=== PATIENT | female | born 1985 | race Caucasian/White ===

== ENCOUNTER 2016-10-04 14:22 | Emergency (ER) | payer MEDICAID ==
[2016-10-04 14:29] VITALS: BP 145/101
== END 2016-10-04 15:43 | disposition left against medical advice (07) ==
LOC: ER 14:22 → EEVIPCON 14:22 → ER 15:43
DX: Z53.21 Procedure and treatment not carried out due to patient leaving prior to being seen by health care provider (principal)

== ENCOUNTER 2018-02-13 14:42 | Emergency (ER) | payer OTHER, MEDICAID ==
[2018-02-13] MEDS ORDERED: OXYCODONE-ACETAMINOPHEN 5-325 MG TABLET PO ONE (15:27)
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
[2018-02-13] MEDS ORDERED: LIDOCAINE 5% (700 MG) TRANSDERMAL ADH..PATCH TP ONE (17:19)
[2018-02-13 17:47] VITALS: BP 111/70
== END 2018-02-13 17:40 | disposition home or self-care (01) ==
LOC: ER 14:42
DX: S16.1XXA Strain of muscle, fascia and tendon at neck level, initial encounter (principal); S29.012A Strain of muscle and tendon of back wall of thorax, initial encounter; M54.2 Cervicalgia; M54.89 Other dorsalgia; V49.40XA Driver injured in collision with unspecified motor vehicles in traffic accident, initial encounter; F17.200 Nicotine dependence, unspecified, uncomplicated
CPT/HCPCS: 72070; 72125; 99284

== ENCOUNTER 2019-03-06 13:25 | Emergency (ER) | payer SELFPAY ==
[2019-03-06 13:42] VITALS: BP 117/78
--- NOTE | 2019-03-06 14:08 | ER Document Report ---
ED Medical Screen (RME) - General Chief Complaint: Vaginal Bleeding Stated Complaint: VAGINAL BLEEDING Time Seen by Provider: 03/06/19 14:04 Mode of Arrival: Ambulatory Information source: Patient Notes: 34-year-old female presents to ED for complaint of vaginal bleeding bright red started about 5 days ago. She states she was going to the methadone clinic and due to life stresses decided to stop going to the methadone clinic and took some Xanax and Percocet to make her feel better. Now she states she still feels bad even taken those medications. She states her last menstrual cycle was the end of August. She states she has been nauseated and vomiting and is vomited 4 5 times today. She states she does not use any other illicit drugs except for the Percocet and Xanax that he used. TRAVEL OUTSIDE OF THE [place] IN LAST 30 DAYS: No - Related Data Allergies/Adverse Reactions: No Known Allergies Allergy (Verified 03/06/19 13:31) Past Medical History Renal/ Medical History: Denies: Hx Peritoneal Dialysis Past Surgical History: Reports: Hx Section - x4, Hx Dilation and Curettage - Immunizations Immunizations up to date: Yes Hx Diphtheria, Pertussis, Tetanus Vaccination: No Physical Exam - Vital signs Vitals: Temp Pulse Resp BP Pulse Ox 98.9 F 107 H 16 117/78 99 03/06/19 13:40 03/06/19 13:40 03/06/19 13:40 03/06/19 13:40 03/06/19 13:40 Course - Vital Signs Vital signs: Temp Pulse Resp BP Pulse Ox 98.9 F 107 H 16 117/78 99 03/06/19 13:40 03/06/19 13:40 03/06/19 13:40 03/06/19 13:40 03/06/19 13:40
[2019-03-06] MEDS ORDERED: ONDANSETRON 4 MG TAB.RAPDIS PO ONE (14:09)
[2019-03-06 15:41] LABS: ABSOLUTE LYMPHOCYTES (AUTO) 0.9 10^3/uL (0.5-4.7); ABSOLUTE MONOCYTES (AUTO) 0.6 10^3/uL (0.1-1.4); ABSOLUTE NEUT (AUTO) 5.6 10^3/uL (1.7-8.2); BASOPHILS % (AUTO) 0.4 % (0-2); EOSINOPHILS % (AUTO) 0.3 % (0-6); HEMATOCRIT 37.2 % (36.0-47.0); LYMPHOCYTES % (AUTO) 12.3 % (13-45); MEAN CORPUSCULAR HEMOGLOBIN 32.5 pg (27.0-33.4); MEAN CORPUSCULAR HGB CONC 34.8 g/dL (32.0-36.0); MEAN CORPUSCULAR VOLUME 93 fl (80-97); MONOCYTES % (AUTO) 8.1 % (3-13); PLATELET COUNT 149 10^3/uL (150-450); RED BLOOD COUNT 3.98 10^6/uL (3.72-5.28); RED CELL DISTRIBUTION WIDTH 13.6 % (11.5-14.0); SEGMENTED NEUTROPHILS % (AUTO) 78.9 % (42-78); TOTAL CELLS COUNTED % (AUTO) 100 %; WHITE BLOOD COUNT 7.1 10^3/uL (4.0-10.5)
[2019-03-06 16:09] LABS: ALBUMIN 3.6 g/dL (3.5-5.0); ALKALINE PHOSPHATASE 88 U/L (38-126); ANION GAP 9 (5-19); ASPARTATE AMINO TRANSFERASE 33 U/L (14-36); BILIRUBIN,DIRECT 0.2 mg/dL (0.0-0.4); BILIRUBIN,TOTAL 0.6 mg/dL (0.2-1.3); BLOOD UREA NITROGEN 6 mg/dL (7-20); CALCIUM 9.2 mg/dL (8.4-10.2); CARBON DIOXIDE 27 mmol/L (22-30); CHLORIDE 102 mmol/L (98-107); GLUCOSE 93 mg/dL (75-110); POTASSIUM 3.8 mmol/L (3.6-5.0); TOTAL PROTEIN 6.8 g/dL (6.3-8.2)
== END 2019-03-06 14:05 | disposition left against medical advice (07) ==
LOC: ER 13:25
DX: N93.9 Abnormal uterine and vaginal bleeding, unspecified (principal); R11.2 Nausea with vomiting, unspecified; Z53.20 Procedure and treatment not carried out because of patient's decision for unspecified reasons
CPT/HCPCS: 36415; 83690; 84703; 85025; 80053; S0119; 99281

== ENCOUNTER 2019-03-07 07:47 | Emergency (ER) | payer SELFPAY ==
[2019-03-07] MEDS ORDERED: NORMAL SALINE 1000 ML 1,000 ML IV ONE (09:51)
[2019-03-07] MEDS ORDERED: DIPHENHYDRAMINE HCL 50 MG/ML VIAL IV ONE (09:52)
[2019-03-07 09:54] LABS: ABSOLUTE LYMPHOCYTES (AUTO) 1.1 10^3/uL (0.5-4.7); ABSOLUTE MONOCYTES (AUTO) 0.7 10^3/uL (0.1-1.4); ABSOLUTE NEUT (AUTO) 4.9 10^3/uL (1.7-8.2); BASOPHILS % (AUTO) 0.3 % (0-2); EOSINOPHILS % (AUTO) 0.2 % (0-6); HEMATOCRIT 32.7 % (36.0-47.0); HEMOGLOBIN 11.7 g/dL (12.0-15.5); LYMPHOCYTES % (AUTO) 16.2 % (13-45); MEAN CORPUSCULAR HEMOGLOBIN 32.8 pg (27.0-33.4); MEAN CORPUSCULAR HGB CONC 35.9 g/dL (32.0-36.0); MEAN CORPUSCULAR VOLUME 92 fl (80-97); MONOCYTES % (AUTO) 10.1 % (3-13); PLATELET COUNT 136 10^3/uL (150-450); RED BLOOD COUNT 3.57 10^6/uL (3.72-5.28); RED CELL DISTRIBUTION WIDTH 13.7 % (11.5-14.0); SEGMENTED NEUTROPHILS % (AUTO) 73.2 % (42-78); TOTAL CELLS COUNTED % (AUTO) 100 %; WHITE BLOOD COUNT 6.7 10^3/uL (4.0-10.5)
[2019-03-07] MEDS ORDERED: PROMETHAZINE HCL INJ 25 MG/1 ML VIAL IM ONE (09:55)
--- NOTE | 2019-03-07 09:57 | ER Document Report ---
ED General - General Chief Complaint: Drug Abuse Stated Complaint: VAGINAL BLEEDING Time Seen by Provider: 03/07/19 09:26 [facility] - Follow up as needed Mode of Arrival: Ambulatory Information source: Patient Notes: Patient presents reporting vaginal bleeding yesterday although denies any vaginal bleeding today. 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 Patient states she has not had any methadone for 5 days. Patient states that she has been attempting to treat her withdrawal by taking oxycodone 20 mg each day. Patient states that she did take Xanax 1 mg yesterday although none since then. Patient reports nausea and vomiting x3 episodes. Patient states that she does want to detox. Patient states that because she has not been to the methadone clinic for 5 days they will not take her back without having to get seen by the physician again to get started all over again. Patient denies any suicidal or homicidal ideation. Patient is uncertain how far along she may be but states that she has not had a menstrual cycle since August of this year. Patient is presently G6, P4. Patient also admits to cocaine use 2 days ago. Patient states that she last took oxycodone yesterday. Patient also complains of lower pelvic abdominal pain TRAVEL OUTSIDE OF THE [place] IN LAST 30 DAYS: No - HPI Onset: Other - 5 days Onset/Duration: Persistent Quality of pain: Cramping Pain Level: 3 Associated symptoms: Nausea, Vomiting. denies: Nonproductive cough, Productive cough Exacerbated by: Denies Relieved by: Denies Similar symptoms previously: Yes Recently seen / treated by doctor: Yes - Related Data Allergies/Adverse Reactions: No Known Allergies Allergy (Verified 03/07/19 07:51) Past Medical History - General Information source: Patient Last Menstrual Period: Uncertain how far along - Social History Smoking Status: Never Smoker Frequency of alcohol use: None Drug Abuse: Cocaine, Prescription drugs Occupation: None Lives with: Family Family History: Reviewed & Not Pertinent - Medical History Medical History: Negative Renal/ Medical History: Denies: Hx Peritoneal Dialysis Past Surgical History: Reports: Hx Section - x4, Hx Dilation and Curettage - Immunizations Immunizations up to date: Yes Hx Diphtheria, Pertussis, Tetanus Vaccination: No Review of Systems - Review of Systems Constitutional: No symptoms reported. denies: Fever EENT: No symptoms reported Cardiovascular: No symptoms reported. denies: Chest pain Respiratory: No symptoms reported. denies: Cough, Short of breath Gastrointestinal: Abdominal pain, Nausea, Vomiting Genitourinary: No symptoms reported Female Genitourinary: , Vaginal bleeding - Yesterday, none today Musculoskeletal: No symptoms reported Skin: No symptoms reported Hematologic/Lymphatic: No symptoms reported Neurological/Psychological: No symptoms reported Physical Exam - Vital signs Vitals: Temp Pulse Resp BP Pulse Ox 98.1 F 117 H 18 118/72 97 03/07/19 07:53 03/07/19 07:53 03/07/19 07:53 03/07/19 07:53 03/07/19 07:53 - General General appearance: Appears well, Alert In distress: None - HEENT Head: Normocephalic, Atraumatic Eyes: Normal Conjunctiva: Normal Nasal: Normal Mouth/Lips: Normal Mucous membranes: Dry Pharynx: Normal Neck: Normal, Supple. No: Lymphadenopathy - Respiratory Respiratory status: No respiratory distress Chest status: Nontender Breath sounds: Normal. No: Rales, Rhonchi, Stridor, Wheezing Chest palpation: Normal - Cardiovascular Rhythm: Tachycardia Heart sounds: S1 appreciated, S2 appreciated Murmur: No - Abdominal Inspection: Gravid female Distension: No distension Bowel sounds: Normal Tenderness: Tender - lower pelvic, periumbilical Organomegaly: No organomegaly - Back Back: Normal, Nontender. No: CVA tenderness - Extremities General upper extremity: Normal inspection, Normal ROM General lower extremity: Normal inspection, Normal ROM - Neurological Neuro grossly intact: Yes Cognition: Normal Orientation: AAOx4 [place] Coma Scale Eye Opening: Spontaneous Hanane Coma Scale Verbal: Oriented [place] Coma Scale Motor: Obeys Commands [place] Coma Scale Total: 15 - Psychological Associated symptoms: Normal affect, Normal mood - Skin Skin Temperature: Warm Skin Moisture: Dry Skin Color: Normal Course - Re-evaluation Re-evalutation: 03/07/19 12:[address] Short regarding patient's request to have medication to help with her withdrawal symptoms. Dr. Short recommends consultation with on-call [employer]. Spoke with Dr. Kelly Hawthorne who is on-call for [employer] [facility] [facility] she states that she does not manage detox and does not have any recommendations for treatment for patient's withdrawal symptoms. Recommends consultation with mental health provider. 03/07/19 13:15 Patient is requesting to be discharged at this time as she only wants something to help with her restlessness from her withdrawal symptoms. Patient states that she has not had any vaginal bleeding since yesterday. Patient was stable H&H. Patient will be provided with outpatient detox information including [place] [facility]. Patient will be discharged from the emergency room to follow-up directly to labor and delivery for labor check given her abdominal pain symptoms. Patient is not suicidal or homicidal and does not require IVC at this time. Patient with mild withdrawal symptoms according to COWS criteria with a score of 8. 03/07/19 Staff states that the got patient almost upstairs and then patient decided that she did not want to go to labor and delivery for labor check and decided to leave. Patient was seen ambulating out of department. - Vital Signs Vital signs: Temp Pulse Resp BP Pulse Ox 98.0 F 100 20 131/74 H 99 03/07/19 13:22 03/07/19 13:22 03/07/19 13:22 03/07/19 13:22 03/07/19 13:22 - Laboratory Result Diagrams: 03/07/19 09:26 03/07/19 09:26 Laboratory results interpreted by me: 03/07/19 03/07/19 03/07/19 09:26 09:26 09:26 RBC 3.57 L Hgb 11.7 L Hct 32.7 L Plt Count 136 L Sodium 133.2 L Potassium 3.1 L BUN 3 L Creatinine 0.45 L AST 43 H Total Protein 6.1 L Albumin 3.2 L Beta HCG, Quant 93815.00 H Urine Protein 100 H Urine Ketones 20 H Urine Bilirubin SMALL H Urine Urobilinogen 4.0 H Ur Leukocyte Esterase SMALL H 03/07/19 13:18 Labs- Entire Visit 03/07/19 03/07/19 03/07/19 09:26 09:26 09:26 WBC 6.7 RBC 3.57 L Hgb 11.7 L Hct 32.7 L MCV 92 MCH 32.8 MCHC 35.9 RDW 13.7 Plt Count 136 L Lymph % (Auto) 16.2 [place] % (Auto) 10.1 Eos % (Auto) 0.2 Baso % (Auto) 0.3 Absolute Neuts (auto) 4.9 Absolute Lymphs (auto) 1.1 Absolute Monos (auto) 0.7 Absolute Eos (auto) 0.0 Absolute Basos (auto) 0.0 Seg Neutrophils % 73.2 Sodium 133.2 L Potassium 3.1 L Chloride 101 Carbon Dioxide 23 Anion Gap 9 BUN 3 L Creatinine 0.45 L Est GFR ( Amer) > 60 Est GFR (MDRD) Non-Af > 60 Glucose 100 Calcium 8.8 Magnesium Total Bilirubin 0.7 Direct Bilirubin 0.2 Neonat Total Bilirubin Not Reportable Neonat Direct Bilirubin Not Reportable Neonat Indirect Bili Not Reportable AST 43 H ALT 17 Alkaline Phosphatase 85 Total Protein 6.1 L Albumin 3.2 L Lipase 173.6 Beta HCG, Quant 08406.00 H Total Beta HCG POSITIVE Urine Color KEVIN Urine Appearance CLOUDY Urine pH 5.0 Ur Specific [place] 1.023 Urine Protein 100 H Urine Glucose (UA) NEGATIVE Urine Ketones 20 H Urine Blood NEGATIVE Urine Nitrite NEGATIVE Urine Bilirubin SMALL H Urine Urobilinogen 4.0 H Ur Leukocyte Esterase SMALL H Urine WBC (Auto) 15 Urine RBC (Auto) 7 Urine Bacteria (Auto) 3+ Squamous Epi Cells Auto 50 Calcium Oxalate Cr Auto FEW Urine Mucus (Auto) MANY Urine Ascorbic Acid NEGATIVE Urine Opiates Screen Urine Methadone Screen Ur Barbiturates Screen Ur Phencyclidine Scrn Ur Amphetamines Screen U Benzodiazepines Scrn Urine Cocaine Screen U Marijuana (THC) Screen 03/07/19 03/07/19 09:26 09:26 WBC RBC Hgb Hct MCV MCH MCHC RDW Plt Count Lymph % (Auto) [place] % (Auto) Eos % (Auto) Baso % (Auto) Absolute Neuts (auto) Absolute Lymphs (auto) Absolute Monos (auto) Absolute Eos (auto) Absolute Basos (auto) Seg Neutrophils % Sodium Potassium Chloride Carbon Dioxide Anion Gap BUN Creatinine Est GFR ( Amer) Est GFR (MDRD) Non-Af Glucose Calcium Magnesium 1.7 Total Bilirubin Direct Bilirubin Neonat Total Bilirubin Neonat Direct Bilirubin Neonat Indirect Bili AST ALT Alkaline Phosphatase Total Protein Albumin Lipase Beta HCG, Quant Total Beta HCG Urine Color Urine Appearance Urine pH Ur Specific [place] Urine Protein Urine Glucose (UA) Urine Ketones Urine Blood Urine Nitrite Urine Bilirubin Urine Urobilinogen Ur Leukocyte Esterase Urine WBC (Auto) Urine RBC (Auto) Urine Bacteria (Auto) Squamous Epi Cells Auto Calcium Oxalate Cr Auto Urine Mucus (Auto) Urine Ascorbic Acid Urine Opiates Screen NEGATIVE Urine Methadone Screen UNCONFIRMED POSITIVE Ur Barbiturates Screen NEGATIVE Ur Phencyclidine Scrn NEGATIVE Ur Amphetamines Screen NEGATIVE U Benzodiazepines Scrn UNCONFIRMED POSITIVE Urine Cocaine Screen UNCONFIRMED POSITIVE U Marijuana (THC) Screen NEGATIVE - Diagnostic Test Radiology reviewed: Reports reviewed Discharge - Discharge Clinical Impression: Methadone withdrawal, Hypokalemia UTI (urinary tract infection) Qualifiers: Urinary tract infection type: site unspecified Hematuria presence: without hematuria Qualified Code(s): N39.0 - Urinary tract infection, site not specified Qualifiers: Weeks of gestation: 26 weeks Qualified Code(s): Z3A.26 - 26 weeks gestation of Nausea & vomiting Qualifiers: Vomiting type: unspecified Vomiting Intractability: non-intractable Qualified Code(s): R11.2 - Nausea with vomiting, unspecified Condition: Stable Disposition: HOME, SELF-CARE Instructions: Antinausea Medication ([facility]), Cephalexin ([facility]), Hypokalemia ([facility]), Intravenous (IV) Fluids ([facility]), Urinary Tract Infection ([facility]) Additional Instructions: Return immediately for any new or worsening symptoms Followup directly with labor and delivery for labor check Follow-up with a detox, substance abuse provider from list provided to you Increase diet with foods rich in potassium Prescriptions: Cephalexin Monohydrate [Keflex 500 mg Capsule] 500 mg PO BID 5 Days capsule Promethazine HCl [Phenergan 25 mg Tablet] 25 mg PO Q6H PRN #10 tablet PRN Reason: Forms: Smoking Cessation Education Referrals: [facility] [Provider Group] - Follow up as needed
[2019-03-07 10:02] LABS: APPEARANCE,URINE CLOUDY; BILIRUBIN,URINE SMALL (NEGATIVE); CALCIUM OXALATE CRYSTALS,URINE FEW /HPF; COLOR,URINE AMBER; GLUCOSE, URINE NEGATIVE (NEGATIVE); KETONES,URINE 20 mg/dL (NEGATIVE); LEUKOCYTE ESTERASE,URINE SMALL (NEGATIVE); NITRITE,URINE NEGATIVE (NEGATIVE); PROTEIN,URINE 100 mg/dL (NEGATIVE); URINE SPECIFIC GRAVITY 1.023
[2019-03-07 10:14] LABS: ALBUMIN 3.2 g/dL (3.5-5.0); ALKALINE PHOSPHATASE 85 U/L (38-126); ANION GAP 9 (5-19); ASPARTATE AMINO TRANSFERASE 43 U/L (14-36); BILIRUBIN,DIRECT 0.2 mg/dL (0.0-0.4); BILIRUBIN,TOTAL 0.7 mg/dL (0.2-1.3); BLOOD UREA NITROGEN 3 mg/dL (7-20); CALCIUM 8.8 mg/dL (8.4-10.2); CARBON DIOXIDE 23 mmol/L (22-30); CHLORIDE 101 mmol/L (98-107); GLUCOSE 100 mg/dL (75-110); POTASSIUM 3.1 mmol/L (3.6-5.0); TOTAL PROTEIN 6.1 g/dL (6.3-8.2)
[2019-03-07 10:15] LABS: URINE AMPHETAMINES SCREEN NEGATIVE; URINE BARBITURATES SCREEN NEGATIVE; URINE BENZODIAZEPINES SCREEN UNCONFIRMED POSITIVE; URINE COCAINE SCREEN UNCONFIRMED POSITIVE; URINE MARIJUANA (THC) SCREEN NEGATIVE; URINE PHENCYCLIDINE SCREEN NEGATIVE
[2019-03-07 10:16] LABS: URINE METHADONE SCREEN UNCONFIRMED POSITIVE
--- NOTE | 2019-03-07 11:17 | RADIOLOGY REPORT (SQ) ---
EXAM DESCRIPTION: U/S ABDOMEN LIMITED W/O DOP COMPLETED DATE/TIME: 03/07/2019 11:02 am REASON FOR STUDY: periumbilical pain, hernia, +n/v COMPARISON: None. TECHNIQUE: Dynamic and static grayscale images acquired of the localized site of clinical concern an d recorded on PACS. Additional selected color Doppler and spectral images recorded. SITE OF CONCERN: Central abdomen, periumbilical. LIMITATIONS: None. FINDINGS: SKIN AND SUBCUTANEOUS TISSUES: No masses. No fluid collections. No edema. No foreign naomy s. DEEP SOFT TISSUES/MUSCLES: No masses. No fluid collections. No edema. No hernia evident. VASCULAR: No increased or decreased vascularity. No occlusions. OTHER: No other significant finding. IMPRESSION: Normal ventral abdominal periumbilical ultrasound. No hernia or mass identified. No fl uid collections. TECHNICAL DOCUMENTATION: JOB ID: [id number] [employer]- All Rights Reserved Reading location - IP/workstation name: [email or web address]
--- NOTE | 2019-03-07 11:20 | RADIOLOGY REPORT (SQ) ---
EXAM DESCRIPTION: U/S OB LIMITED COMPLETED DATE/TIME: 03/07/2019 11:02 am REASON FOR STUDY: pelvic pain, vag bleeding, +hcg COMPARISON: None. TECHNIQUE: Limited transabdominal and endovaginal grayscale ultrasound for evaluation of specific re quested obstetrical parameters. LIMITATIONS: None. FINDINGS: CERVICAL LENGTH: 3.6 cm. Closed. SOLITARIO: Largest vertical pocket 6.8 cm. FHR: 168 beats per minute. PRESENTATION: Cephalic. PLACENTA: Anterior placenta without evidence of abruption. ANATOMY: Not assessed OTHER: Estimated gestational age 26 week 2 day IMPRESSION: LIMITED OBSTETRICAL ULTRASOUND WITH MEASURED PARAMETERS DELINEATED ABOVE. Trimester of : Second trimester - 13 weeks 1 day to 27 weeks 6 days. TECHNICAL DOCUMENTATION: JOB ID: [id number] [employer]- All Rights Reserved Reading location - IP/workstation name: [email or web address]
[2019-03-07] MEDS ORDERED: POTASSIUM CHLORIDE 10 MEQ CAPSULE.ER PO ONE (11:26)
[2019-03-07 13:24] VITALS: BP 131/74
--- NOTE | 2019-03-07 13:50 | PSYCHOLOGICAL NOTE ---
Psych Note - Psych Note Date seen by psych provider: 03/07/19 Time seen by psych provider: 11:45 Psych Note: Reason for Consult: detox Pt. presents to ED with CC of having lower and pain, vaginal bleeding, and needing help regarding abuse of percocet and xanax after quitting cold turkey at the Methadone clinic. Patient reports she would like assistance in getting detoxed off methadone. She reports that the last time she used was 6 days ago however has been using Percocet and Xanax and attempt to control withdrawal symptoms. Patient states she would like to go inpatient for detox. She has never been through detox before and reports that she "does not really have a stretch" of sobriety. Patient states she has minimal support network. She denies any thoughts of wanting to harm herself or others. Patient is alert and orientated to person, place, time and circumstance. Mood is irritable with congruent affect. Clinician notes patient is currently experiencing withdrawal symptoms as evidenced by both mood and psychomotor agitation. Patient denies suicidal and homicidal ideation. Delusions are absent behaviors congruent with an intact reality based presentation i.e. organized linear thought process. Eye contact is poor. Conversational speech i s within normal rate, tone and prosody. Intellectual abilities appear to be within the average range. Attention and concentration are fair. Insight, judgment, impulse control are fair. polysubstance abuse no mediation recommendations at this time Impression/Plan: Patient is cleared from acute psychiatric services. Patient denies suicidal and homicidal ideation. Patient is requesting assistance with detoxing off methadone. She reports she last used 6 days ago but used Percocets and Xanax to help with the symptoms of withdrawal. Patient does not admit to cocaine use (patient's toxicology screening indicated cocaine, methadone, and benzodiazepines). The behavioral health team contacted [facility] to confirm eligibility. Patient is currently 26 weeks . [facility] confirms they can assist the patient however currently there are no beds available. Patient is requesting to go home. Patient has been provided local resource list of detox facilities including [facility]'s phone number And mobile crisis contact information. Dr. Little was consulted to care management of this patient; attending physicians in agreement with recommendations and disposition.
== END 2019-03-07 13:32 | disposition home or self-care (01) ==
LOC: ER 07:47
DX: O99.322 Drug use complicating pregnancy, second trimester (principal); F11.23 Opioid dependence with withdrawal; F14.10 Cocaine abuse, uncomplicated; O23.42 Unspecified infection of urinary tract in pregnancy, second trimester; O21.2 Late vomiting of pregnancy; O99.282 Endocrine, nutritional and metabolic diseases complicating pregnancy, second trimester; E87.6 Hypokalemia; O26.892 Other specified pregnancy related conditions, second trimester; R10.2 Pelvic and perineal pain; R10.815 Periumbilic abdominal tenderness; Z3A.26 26 weeks gestation of pregnancy
CPT/HCPCS: 99284; 96372; 96361; 96374; 36415; 87086; 84702; 83690; 83735; 85025; 87088; 80053; 81001; 87186; 80307; 76705; 76815; J1200; J2550; J7030

== ENCOUNTER 2019-04-21 02:21 | Outpatient (CLI) | payer MEDICAID ==
--- NOTE | 2019-04-21 02:49 | Admission Physical ---
Datetime Report Generated by CPN: 04/21/2019 02:49 CURRENT ADMISSION Chief Complaint: Other Chief Complaint Other: Pt unable to void Indication for Induction: Not Applicable Admit Impression : Medical Complication Admit Plan: Admit to Unit; Observation/Evaluation ALLERGIES Medication Allergies: No Known Allergies (03/07/2019) PHYSICAL EXAM General: Normal HEENT: Normal Neurologic: Normal Thyroid: Normal Heart: Normal Lungs: Normal Breast: Deferred Back: Normal Abdomen: Normal Genitourinary Exam: Normal Extremities: Normal DTRs: Normal Pelvic Type: Adequate Vital Signs: Reviewed VAGINAL EXAM Dilatation: 0 MEMBRANES Pooling: Negative FETUS A Monitoring: External US FHR- Baseline: 140 Variability: Moderate 6-25bpm Decelerations: None FHR Category: Category I Presentation: Breech Admit Comment: miles drainage needed INFORMED CONSENT Signature: with User ID: [email or web address]
[2019-04-21 03:31] LABS: APPEARANCE,URINE HAZY; BILIRUBIN,URINE NEGATIVE (NEGATIVE); COLOR,URINE STRAW; GLUCOSE, URINE NEGATIVE (NEGATIVE); KETONES,URINE NEGATIVE (NEGATIVE); LEUKOCYTE ESTERASE,URINE TRACE (NEGATIVE); NITRITE,URINE NEGATIVE (NEGATIVE); PROTEIN,URINE NEGATIVE (NEGATIVE); URINE SPECIFIC GRAVITY 1.005
[2019-04-21 03:36] LABS: ABSOLUTE LYMPHOCYTES (AUTO) 0.8 10^3/uL (0.5-4.7); ABSOLUTE MONOCYTES (AUTO) 0.5 10^3/uL (0.1-1.4); ABSOLUTE NEUT (AUTO) 6.3 10^3/uL (1.7-8.2); BASOPHILS % (AUTO) 0.2 % (0-2); EOSINOPHILS % (AUTO) 0.1 % (0-6); HEMATOCRIT 29.7 % (36.0-47.0); HEMOGLOBIN 10.3 g/dL (12.0-15.5); LYMPHOCYTES % (AUTO) 10.1 % (13-45); MEAN CORPUSCULAR HEMOGLOBIN 31.7 pg (27.0-33.4); MEAN CORPUSCULAR HGB CONC 34.8 g/dL (32.0-36.0); MEAN CORPUSCULAR VOLUME 91 fl (80-97); MONOCYTES % (AUTO) 6.1 % (3-13); PLATELET COUNT 125 10^3/uL (150-450); RED BLOOD COUNT 3.25 10^6/uL (3.72-5.28); RED CELL DISTRIBUTION WIDTH 12.7 % (11.5-14.0); SEGMENTED NEUTROPHILS % (AUTO) 83.5 % (42-78); TOTAL CELLS COUNTED % (AUTO) 100 %; WHITE BLOOD COUNT 7.5 10^3/uL (4.0-10.5)
[2019-04-21 03:50] LABS: URINE AMPHETAMINES SCREEN NEGATIVE; URINE BARBITURATES SCREEN NEGATIVE; URINE MARIJUANA (THC) SCREEN NEGATIVE; URINE PHENCYCLIDINE SCREEN NEGATIVE
--- NOTE | 2019-04-21 03:59 | RADIOLOGY REPORT (SQ) ---
EXAM DESCRIPTION: US LIMITED COMPLETED DATE/TME: 04/21/2019 00:00 CLINICAL HISTORY: 34 years, Female, no care COMPARISON: None. TECHNIQUE: Limited emergent OB ultrasound LIMITATIONS: None. FINDINGS: Single, live intrauterine gestation in the breech presentation. Cervical length is 3.7 cm. The placenta is anterior in location with a grade 1 echotexture. No evidence for previa. Amniotic fluid index 11.3 cm. Detailed anatomic assessment not performed at this time IMPRESSION: Single live intrauterine gestation in the breech presentation. Not stated previously, ultrasound age is 32 weeks 5 days copyright 2010 [employer]- All Rights Reserved
[2019-04-21 04:00] LABS: URINE BENZODIAZEPINES SCREEN UNCONFIRMED POSITIVE; URINE COCAINE SCREEN UNCONFIRMED POSITIVE; URINE METHADONE SCREEN UNCONFIRMED POSITIVE
[2019-04-21 04:48] LABS: CHLAM PCR DETECTED (NOT DETECT)
--- NOTE | 2019-04-21 05:13 | Non Stress Test Report ---
Non Stress Test Datetime Report Generated by CPN: 04/21/2019 05:13 DEMOGRAPHIC EGA NST: 32.5 INDICATION Indication for Study: Ordered by Provider MONITORING Monitor Explained: Monitor Explained; Test Explained; Patient Verbalized Understanding Time on Monitor: 04/21/2019 03:44 Time off Monitor: 04/21/2019 04:54 NST Duration: 70 NST INTERVENTIONS NST Interventions: PO Hydration Physician Notified NST: Dr. Ferro BABY A: [id number] BABY A Movement : Present Contraction Frequency : Irregular FHR Baseline : 120 Accelerations : 10X10 Decelerations : None Variability : Moderate 6-25bpm NST Review: Does Not Meet Criteria for Reactive NST NST Review and Verified By : CHRYSTAL Mcconnell Results: Non-Reactive NST COMMENTS NST Comments: In the process of obtaining NST, patient left AMA. NST REPORT Report Trigger: Send Report
[2019-04-22 05:37] LABS: HEPATITIS C VIRUS AB <0.1 s/co ratio (0.0-0.9)
[2019-04-22 07:02] LABS: HEPATITS B SURFACE ANTIGEN Negative (Negative)
== END 2019-04-21 04:59 | disposition home or self-care (01) ==
LOC: LC 02:21 → UNDOADMOB 04:32 → LR 04:32 → LC 04:59 → UNDODISOB 04:59
PROVIDERS: ATTEND Obstetrics & Gynecology
DX: O47.03 False labor before 37 completed weeks of gestation, third trimester (principal); O26.893 Other specified pregnancy related conditions, third trimester; R33.9 Retention of urine, unspecified; O09.33 Supervision of pregnancy with insufficient antenatal care, third trimester; Z3A.32 32 weeks gestation of pregnancy
CPT/HCPCS: 59025; 86900; 86901; 36415; 86850; 85025; 81005; 86762; 86592; 87340; 86701; 80307; 80353; 87491; 87591; 86803; 86804; 76815; G0480 ×3

== ENCOUNTER 2019-08-05 20:04 | Emergency (ER) | payer MEDICAID ==
[2019-08-05] MEDS ORDERED: HYDROCODONE/ACETAMINOPHEN 5-325 MG (6 TAB/ER DISP) PO PRN (21:02)
[2019-08-05] MEDS ORDERED: CLINDAMYCIN HCL 150 MG CAPSULE PO ONE (21:02)
--- NOTE | 2019-08-05 21:06 | ER Document Report ---
HPI - HPI Patient complains to provider of: dental pain Time Seen by Provider: 08/05/19 20:54 Onset: This morning Onset/Duration: Sudden Quality of pain: Achy Pain Level: 3 Context: 34-year-old female presents emergency department with right swollen jaw. Reports right lower dental pain. Reports symptoms started this morning. Denies fever vomiting diarrhea. Although she feels hot. She also reports she does not have insurance. Reports sensitivity to heat and cold. Associated Symptoms: None Exacerbated by: Denies Relieved by: Denies Similar symptoms previously: No Recently seen / treated by doctor: No - REPRODUCTIVE Reproductive: DENIES: : Past Medical History - General Information source: Patient - Social History Smoking Status: Current Every Day Smoker Cigarette use (# per day): Yes Frequency of alcohol use: Occasional Drug Abuse: None Occupation: [employer] Lives with: Family Family History: Reviewed & Not Pertinent Patient has suicidal ideation: No Patient has homicidal ideation: No - Medical History Medical History: Negative Renal/ Medical History: Denies: Hx Peritoneal Dialysis Past Surgical History: Reports: Hx Section - x4, Hx Dilation and Curettage - Immunizations Immunizations up to date: Yes Hx Diphtheria, Pertussis, Tetanus Vaccination: No Vertical Provider Document - CONSTITUTIONAL Agree With Documented VS: Yes Exam Limitations: No Limitations General Appearance: WD/WN, Mild Distress - Patient looks uncomfortable - INFECTION CONTROL TRAVEL OUTSIDE OF THE [place] IN LAST 30 DAYS: No - HEENT HEENT: Atraumatic, Normocephalic. negative: Pharyngeal Erythema Mouth Diagram: 1 - Patient reports pain, swelling noted no erythema no pustule noted. Opens mouth wide no trismus no Kodak's - NECK Neck: Normal Inspection, Supple. negative: Lymphadenopathy-Left, Lymphadenopathy-Right - RESPIRATORY Respiratory: Breath Sounds Normal, No Respiratory Distress - CARDIOVASCULAR Cardiovascular: Regular Rhythm, Tachycardia - MUSCULOSKELETAL/EXTREMETIES Musculoskeletal/Extremeties: MAEW, FROM - NEURO Level of Consciousness: Awake, Alert, Appropriate Motor/Sensory: No Motor Deficit - DERM Integumentary: Warm, Dry Adult Front & Back Diagram: 1 - Swelling noted no erythema no warmth to patient's face. Course - Re-evaluation Re-evalutation: 08/05/19 21:12 Patient started on clindamycin. Instructed on Makanda. Patient instructed on importance of follow-up with the dentist for treatment. She verbalized understanding to all instructions. - Vital Signs Vital signs: Temp Pulse Resp BP Pulse Ox 98.9 F 118 H 20 140/100 H 98 08/05/19 20:30 08/05/19 20:30 08/05/19 20:30 08/05/19 20:30 08/05/19 20:30 Discharge - Discharge Clinical Impression: Pain, dental Condition: Stable Disposition: HOME, SELF-CARE Instructions: Clindamycin ([facility]), Dentist, Oral Narcotic Medication ([facility]), Toothache ([facility]) Additional Instructions: *You have been evaluated for dental pain *Take medications as prescribed *Follow up with [facility] *Return to ED for worsening condition, changes, needs, increased swelling, concerns Monitor your blood pressure. Your blood pressure was elevated today. This may be because you were anxious, in pain or because you need medication. It is important to follow up with your primary care provider for full evaluation. Prescriptions: Clindamycin HCl [Cleocin 150 mg Capsule] 300 mg PO Q6 #40 capsule Forms: Elevated Blood Pressure, Return to Work Referrals: [facility] [Provider Group] - Follow up in 3-5 days
[2019-08-05 22:46] VITALS: BP 142/98
== END 2019-08-05 21:21 | disposition home or self-care (01) ==
LOC: ER 20:04
DX: K08.9 Disorder of teeth and supporting structures, unspecified (principal); F17.210 Nicotine dependence, cigarettes, uncomplicated

== ENCOUNTER 2019-08-19 15:26 | Emergency (ER) | payer MEDICAID ==
--- NOTE | 2019-08-19 17:26 | EKG REPORT ---
SEVERITY:- OTHERWISE NORMAL ECG - SINUS TACHYCARDIA : Confirmed by: Dipika Jennings MD 19-Aug-2019 17:25:39
[2019-08-19] MEDS ORDERED: NORMAL SALINE 1000 ML 1,000 ML IV ONE (17:35)
--- NOTE | 2019-08-19 17:40 | ER Document Report ---
ED Medical Screen (RME) - General Stated Complaint: CHEST PAIN/SHORTNESS OF BREATH Time Seen by Provider: 08/19/19 17:27 Notes: Patient is a 34-year-old female presents emergency department with a chief complaint of chest pressure. Patient reports that she has had intermittent chest tightness and pressure for about 1 week with shortness of breath. Patient reports she has been seen here in the past for tachycardia but was never given a diagnosis. Patient reports she did go to the urgent care prior to arrival to the emergency department was diagnosed with a UTI. Patient also concerned because she is having vaginal discharge x1 month that is foul-smelling and brown in color. Patient reports she did have a on May and states there is a possible concern for STI. Patient reports she is also had diarrhea for 1 month which occurs daily. Denies fever. Patient reports urinary burning. TRAVEL OUTSIDE OF THE [place] IN LAST 30 DAYS: No - Related Data Allergies/Adverse Reactions: No Known Allergies Allergy (Verified 08/19/19 17:23) Past Medical History Renal/ Medical History: Denies: Hx Peritoneal Dialysis Past Surgical History: Reports: Hx Section - x4, Hx Dilation and Curettage - Immunizations Immunizations up to date: Yes Hx Diphtheria, Pertussis, Tetanus Vaccination: No Physical Exam - Vital signs Vitals: Temp Pulse Resp BP Pulse Ox 98.7 F 119 H 20 143/100 H 99 08/19/19 16:44 08/19/19 16:44 08/19/19 16:44 08/19/19 16:44 08/19/19 16:44 - Cardiovascular Rhythm: Tachycardia Heart sounds: Normal auscultation, S1 appreciated, S2 appreciated Course - Re-evaluation Re-evalutation: 08/19/19 17:39 Patient was noted to be tachycardic with a heart rate of 119. Will initiate basic labs, TSH as well as a d-dimer. Patient is not hypoxic. Denies leg swelling, coughing up blood, recent surgery or trauma within the past 4 weeks, prior DVT or PE or recent hormone use. I have greeted and performed a rapid initial assessment of this patient. A comprehensive ED assessment and evaluation of the patient, analysis of test results and completion of the medical decision making process will be conducted by additional ED providers. - Vital Signs Vital signs: Temp Pulse Resp BP Pulse Ox 98.7 F 119 H 20 143/100 H 99 08/19/19 16:44 08/19/19 16:44 08/19/19 16:44 08/19/19 16:44 08/19/19 16:44
--- NOTE | 2019-08-19 18:03 | RADIOLOGY REPORT (SQ) ---
EXAM DESCRIPTION: CHEST 2 VIEWS COMPLETED DATE/TIME: 08/19/2019 5:49 pm REASON FOR STUDY: CHEST PAIN, TACHYCARDIA COMPARISON: 03/11/2011 EXAM PARAMETERS: NUMBER OF VIEWS: two views TECHNIQUE: Digital Frontal and Lateral radiographic views of the chest acquired. RADIATION DOSE: NA LIMITATIONS: none FINDINGS: LUNGS AND PLEURA: No opacities, masses or pneumothorax. No pleural effusion. MEDIASTINUM AND HILAR STRUCTURES: No masses or contour abnormalities. HEART AND VASCULAR STRUCTURES: Heart normal size. No evidence for failure. BONES: No acute findings. Mild serpiginous thoracic curvature HARDWARE: None in the chest. OTHER: No other significant finding. IMPRESSION: NO ACUTE RADIOGRAPHIC FINDING IN THE CHEST. TECHNICAL DOCUMENTATION: JOB ID: [id number] 2010 [employer]- All Rights Reserved Reading location - IP/workstation name: [email or web address]
[2019-08-19 18:54] LABS: ABSOLUTE EOSINOPHILS # (AUTO) 0.1 10^3/uL (0.0-0.6); ABSOLUTE LYMPHOCYTES (AUTO) 1.6 10^3/uL (0.5-4.7); ABSOLUTE MONOCYTES (AUTO) 0.3 10^3/uL (0.1-1.4); ABSOLUTE NEUT (AUTO) 4.8 10^3/uL (1.7-8.2); BASOPHILS % (AUTO) 0.6 % (0-2); EOSINOPHILS % (AUTO) 0.8 % (0-6); HEMATOCRIT 39.4 % (36.0-47.0); HEMOGLOBIN 13.5 g/dL (12.0-15.5); LYMPHOCYTES % (AUTO) 23.5 % (13-45); MEAN CORPUSCULAR HEMOGLOBIN 30.9 pg (27.0-33.4); MEAN CORPUSCULAR HGB CONC 34.2 g/dL (32.0-36.0); MEAN CORPUSCULAR VOLUME 90 fl (80-97); MONOCYTES % (AUTO) 4.8 % (3-13); PLATELET COUNT 151 10^3/uL (150-450); RED BLOOD COUNT 4.36 10^6/uL (3.72-5.28); RED CELL DISTRIBUTION WIDTH 17.1 % (11.5-14.0); SEGMENTED NEUTROPHILS % (AUTO) 70.3 % (42-78); TOTAL CELLS COUNTED % (AUTO) 100 %; WHITE BLOOD COUNT 6.8 10^3/uL (4.0-10.5)
[2019-08-19 20:05] LABS: AMORPHOUS SEDIMENT,URINE TRACE /HPF; APPEARANCE,URINE TURBID; BILIRUBIN,URINE NEGATIVE (NEGATIVE); COLOR,URINE AMBER; GLUCOSE, URINE NEGATIVE (NEGATIVE); KETONES,URINE NEGATIVE (NEGATIVE); LEUKOCYTE ESTERASE,URINE MODERATE (NEGATIVE); NITRITE,URINE POSITIVE (NEGATIVE); PROTEIN,URINE 30 mg/dL (NEGATIVE); URINE SPECIFIC GRAVITY 1.025; UROBILINOGEN,URINE NEGATIVE mg/dL (<2.0)
[2019-08-19 20:27] LABS: ALBUMIN 4.1 g/dL (3.5-5.0); ALKALINE PHOSPHATASE 177 U/L (38-126); ANION GAP 13 (5-19); ASPARTATE AMINO TRANSFERASE 86 U/L (14-36); BILIRUBIN,DIRECT 0.3 mg/dL (0.0-0.4); BILIRUBIN,TOTAL 0.6 mg/dL (0.2-1.3); BLOOD UREA NITROGEN 12 mg/dL (7-20); CALCIUM 9.6 mg/dL (8.4-10.2); CARBON DIOXIDE 25 mmol/L (22-30); CHLORIDE 102 mmol/L (98-107); GLUCOSE 145 mg/dL (75-110); POTASSIUM 4.2 mmol/L (3.6-5.0); TOTAL PROTEIN 7.9 g/dL (6.3-8.2)
--- NOTE | 2019-08-19 21:26 | RADIOLOGY REPORT (SQ) ---
EXAM DESCRIPTION: CT CHEST ANGIOGRAPHY WITHOUT THEN WITH IV CONTRAST COMPLETED DATE/TME: 08/19/2019 19:39 CLINICAL HISTORY: 34 years, Female, Chest tightness, tachycardiac, elevated d-dimer COMPARISON: None. TECHNIQUE: Images stored on PACS. All CT scanners at this facility use dose modulation, iterative reconstruction, and/or weight based dosing when appropriate to reduce radiation dose to as low as reasonably achievable (ALARA). [facility]: Dose Right [facility]: CareDose [facility]: Dose Right [facility]: Teradose 4D [facility]: [employer] LIMITATIONS: Motion. Persistent venous opacification FINDINGS: Imaging is degraded by patient motion, with resultant artifact. The best possible images were obtained. No central pulmonary embolus. There is of normal caliber without aneurysm or dissection. The heart is of normal size. No mediastinal adenopathy. The lungs are grossly clear. No effusion. No pneumothorax. Detail obscured by motion. Hepatic steatosis. Cystic structure adjacent to the spleen, poorly seen. No acute bony injury is seen. IMPRESSION: Imaging is degraded by patient motion, with resultant artifact. The best possible images were obtained. No evidence of central pulmonary embolus. Lungs grossly clear. Indeterminant cystic structure adjacent to the spleen, low-attenuation somewhat crescentic measuring 1.7 x 5.4 cm in maximum cross-sectional dimensions TECHNICAL DOCUMENTATION: Quality ID # [id number]: Final reports with documentation of one or more dose reduction techniques (e.g., Automated exposure control, adjustment of the mA and/or kV according to patient size, use of iterative reconstruction technique) copyright 2011 [employer]- All Rights Reserved
[2019-08-20] MEDS ORDERED: LORAZEPAM 1 MG TABLET PO ONE (01:15)
[2019-08-20] MEDS ORDERED: AZITHROMYCIN 250 MG TABLET PO ONE (01:15)
[2019-08-20] MEDS ORDERED: CEFTRIAXONE INJ 1000 MG VIAL IM ONE (01:16)
[2019-08-20] MEDS ORDERED: LIDOCAINE 1% INJ-PF (10 MG/ML) 30 ML SDV IM ONE (01:16)
--- NOTE | 2019-08-20 01:38 | ER Document Report ---
ED General - General Chief Complaint: Chest Tightness Stated Complaint: CHEST PAIN/SHORTNESS OF BREATH Time Seen by Provider: 08/19/19 17:27 Primary Care Provider: MEHUL MOSS MD [ACTIVE STAFF] - Follow up as needed Mode of Arrival: Ambulatory Information source: Patient Notes: RME HPI: Patient is a 34-year-old female presents emergency department with a chief complaint of chest pressure. Patient reports that she has had intermittent chest tightness and pressure for about 1 week with shortness of breath. Patient reports she has been seen here in the past for tachycardia but was never given a diagnosis. Patient reports she did go to the urgent care prior to arrival to the emergency department was diagnosed with a UTI. Patient also concerned because she is having vaginal discharge x1 month that is foul-smelling and brown in color. Patient reports she did have a on May and states there is a possible concern for STI. Patient reports she is also had diarrhea for 1 month which occurs daily. Denies fever. Patient reports urinary burning. TRAVEL OUTSIDE OF THE [place] IN LAST 30 DAYS: No - Related Data Allergies/Adverse Reactions: No Known Allergies Allergy (Verified 08/19/19 17:23) Past Medical History - General Information source: Patient - Social History Smoking Status: Current Every Day Smoker Chew tobacco use (# tins/day): No Frequency of alcohol use: Occasional Drug Abuse: None Family History: Reviewed & Not Pertinent Patient has suicidal ideation: No Patient has homicidal ideation: No - Medical History Medical History: Negative Renal/ Medical History: Denies: Hx Peritoneal Dialysis Past Surgical History: Reports: Hx Section - x4, Hx Dilation and Curettage - Immunizations Immunizations up to date: Yes Hx Diphtheria, Pertussis, Tetanus Vaccination: No Review of Systems - Review of Systems Constitutional: No symptoms reported EENT: No symptoms reported Cardiovascular: No symptoms reported Respiratory: See HPI Gastrointestinal: No symptoms reported Genitourinary: No symptoms reported Female Genitourinary: See HPI Musculoskeletal: No symptoms reported Skin: No symptoms reported Hematologic/Lymphatic: No symptoms reported Neurological/Psychological: No symptoms reported Physical Exam - Vital signs Vitals: Temp Pulse Resp BP Pulse Ox 98.7 F 119 H 20 143/100 H 99 08/19/19 16:44 08/19/19 16:44 08/19/19 16:44 08/19/19 16:44 08/19/19 16:44 - Notes Notes: PHYSICAL EXAMINATION: GENERAL: Well-appearing, well-nourished and in no acute distress. HEAD: Atraumatic, normocephalic. EYES: Pupils equal round and reactive to light, extraocular movements intact, conjunctiva are normal. ENT: Nares patent, oropharynx clear without exudates. Moist mucous membranes. NECK: Normal range of motion, supple without lymphadenopathy LUNGS: Breath sounds clear to auscultation bilaterally and equal. No wheezes rales or rhonchi. HEART: Regular rate and rhythm without murmurs ABDOMEN: Soft, nontender, nondistended abdomen. No guarding, no rebound. No masses appreciated. Female : Refused to speculum exam Musculoskeletal: Normal range of motion, no pitting or edema. No cyanosis. NEUROLOGICAL: Cranial nerves grossly intact. Normal speech, normal gait. Normal sensory, motor exams PSYCH: Normal mood, normal affect, anxious. SKIN: Warm, Dry, normal turgor, no rashes or lesions noted. Course - Re-evaluation Re-evalutation: 08/20/19 01:38 Attempted pelvic exam with speculum, patient declined stating that she has too much vaginal pain. Patient will self swab. The rest of her work-up today has been unremarkable. Orders were placed by triage provider to include lab work, chest x-ray and CTA after she came back with an elevated d-dimer. She does appear to be very anxious, and she also admits to drug use including cocaine. She was given 1 mg of Ativan in the emergency department so that I could try to complete a physical exam on her. Overall her work-up has been unremarkable other than bacterial vaginosisand UTI however due to her refusal of the attempted pelvic exam due to pain I will prescribe her both Flagyl and doxycycline for presumed PID. She will be treated prophylactically for sexually transmitted diseases and I will give her 1 g of ceftriaxone for the UTI as well. Patient understands the need to comply with medications and to return to the emergency department if worsening. She did specifically ask for a prescription for Ativan which will not be fulfilled. I encouraged her to please follow-up with primary care or mental health regarding her anxiety issues. - Vital Signs Vital signs: Temp Pulse Resp BP Pulse Ox 97.9 F 98 18 130/90 H 100 08/20/19 03:23 08/20/19 03:23 08/20/19 03:23 08/20/19 03:23 08/20/19 03:23 - Laboratory Result Diagrams: 08/19/19 18:20 08/19/19 19:57 Laboratory results interpreted by me: 08/19/19 08/19/19 08/19/19 18:20 18:20 18:30 RDW 17.1 H D-Dimer 0.74 H Glucose AST Alkaline Phosphatase Urine Protein 30 H Urine Blood MODERATE H Urine Nitrite POSITIVE H Ur Leukocyte Esterase MODERATE H 08/19/19 19:57 RDW D-Dimer Glucose 145 H AST 86 H Alkaline Phosphatase 177 H Urine Protein Urine Blood Urine Nitrite Ur Leukocyte Esterase - Diagnostic Test Radiology reviewed: Image reviewed, Reports reviewed - EKG Interpretation by Me EKG shows normal: Sinus rhythm Rate: Tachycardia Additional EKG results interpreted by me: No ST segment elevations or depressions. Discharge - Discharge Clinical Impression: Pelvic pain, Bacterial vaginosis, Anxiety Chest pain Qualifiers: Chest pain type: unspecified Qualified Code(s): R07.9 - Chest pain, unspecified Condition: Stable Disposition: HOME, SELF-CARE Additional Instructions: PID dischargePelvic Inflammatory Disease You have been diagnosed as having pelvic inflammatory disease (PID). This is an infection of the fallopian tubes and surrounding areas of the pelvis. Symptoms are usually pelvic pain and discharge. The infection can do permanent damage to the tubes and ovaries. It should be taken very seriously. Treatment is antibiotics, which may be given by vein or by injection if the infection seems serious. It's important that you receive all recommended medication. Condoms help prevent spread of this infection to others. Because this infection is spread sexually, it's important that your sexual partner be checked before resuming sexual relations. If a culture shows wendy orrhea or chlamydia organisms, the law requires that this be reported to the health department. Call the doctor or return at once if you develop increasing fever, rash, severe pelvic pain, vaginal bleeding (other than your period), or problems with your bladder or bowels. Prescriptions: Metronidazole [Flagyl 500 mg Tablet] 500 mg PO BID #28 tablet Doxycycline Hyclate [Vibramycin 100 mg Tablet] 100 mg PO BID #28 tablet Referrals: MEHUL MOSS MD [ACTIVE STAFF] - Follow up as needed
[2019-08-20 02:03] LABS: BACTERIA (WET MOUNT) 3+ BACTERIA SEEN; EPITHELIALS (WET MOUNT) 3+ EPITHELIALS SEEN; RBCS (WET MOUNT) FEW RBCS SEEN; T.VAGINALIS (WET MOUNT) NO TRICHOMONAS SEEN; WBCS (WET MOUNT) 1+ WBCS SEEN; YEAST (WET MOUNT) NO YEAST SEEN
[2019-08-20 02:47] LABS: URINE AMPHETAMINES SCREEN NEGATIVE; URINE BARBITURATES SCREEN NEGATIVE; URINE BENZODIAZEPINES SCREEN NEGATIVE; URINE METHADONE SCREEN NEGATIVE; URINE PHENCYCLIDINE SCREEN NEGATIVE
[2019-08-20 02:48] LABS: URINE COCAINE SCREEN UNCONFIRMED POSITIVE; URINE MARIJUANA (THC) SCREEN NEGATIVE
[2019-08-20] MEDS ORDERED: METRONIDAZOLE 500 MG TABLET PO ONE (02:57)
[2019-08-20] MEDS ORDERED: DOXYCYCLINE HYCLATE 100 MG TABLET PO ONE (02:59)
[2019-08-20 03:26] VITALS: BP 130/90
[2019-08-20 03:29] LABS: CHLAM PCR NOT DETECTED (NOT DETECT)
== END 2019-08-20 03:23 | disposition home or self-care (01) ==
LOC: ER 15:26
DX: N76.0 Acute vaginitis (principal); B96.89 Other specified bacterial agents as the cause of diseases classified elsewhere; F41.9 Anxiety disorder, unspecified; R10.2 Pelvic and perineal pain; R07.9 Chest pain, unspecified; R06.02 Shortness of breath; R19.7 Diarrhea, unspecified; R30.9 Painful micturition, unspecified; F17.200 Nicotine dependence, unspecified, uncomplicated
CPT/HCPCS: 93005; 99284; 96360; 36415; 87086; 87210; 84443; 85025; 81025; 87088; 80053; 81001; 84484; 87186; 80307; 85379; 87491; 87591; 71046; 71275; 93010; Q0144; J3490 ×3; J0696; J7030

== ENCOUNTER 2019-09-10 12:15 | Emergency (ER) | payer SELFPAY ==
[2019-09-10] MEDS ORDERED: ONDANSETRON 4 MG TAB.RAPDIS PO ONE (12:39)
--- NOTE | 2019-09-10 12:50 | ER Document Report ---
ED Medical Screen (RME) - General Chief Complaint: Abdominal Pain Stated Complaint: ABDOMINAL PAIN Time Seen by Provider: 09/10/19 12:34 TRAVEL OUTSIDE OF THE [place] IN LAST 30 DAYS: No - HPI Notes: 09/10/19 12:43 34-year-old female 3 months, , presents emergency room for for multiple complaints. Patient reports lower abdominal pain, nausea, vomiting, diarrhea with fevers for the last 3 days as well as chest tightness with a dry cough for the last 3 days. Pt is also concerned about her elevated heart rate. Denies any illicit drug use. symptoms are becoming worse with time. Tried i buprofen without for relief. Patient did not get a flu shot this year. Worse with time, nothing is making better. Decreased eating but drinking without issues. Patient did walk-in with a Lu's bag for consumption. I have greeted and performed a rapid initial assessment of this patient. A comprehensive ED assessment and evaluation of the patient, analysis of test results and completion of the medical decision making process will be conducted by additional ED providers. PHYSICAL EXAMINATION: GENERAL: Well-appearing, well-nourished and in no acute distress. NECK: Normal range of motion CV: s1, s2 regular LUNGS: No respiratory distress - Related Data Allergies/Adverse Reactions: No Known Allergies Allergy (Verified 09/10/19 12:49) Past Medical History - Social History Frequency of alcohol use: None Drug Abuse: None Renal/ Medical History: Denies: Hx Peritoneal Dialysis Past Surgical History: Reports: Hx Section - x4, Hx Dilation and Curettage - Immunizations Immunizations up to date: Yes Hx Diphtheria, Pertussis, Tetanus Vaccination: No Physical Exam - Vital signs Vitals: Temp Pulse Resp BP Pulse Ox 97.9 F 131 H 20 145/110 H 98 09/10/19 12:22 09/10/19 12:22 09/10/19 12:22 09/10/19 12:22 09/10/19 12:22 Course - Vital Signs Vital signs: Temp Pulse Resp BP Pulse Ox 97.9 F 131 H 20 145/110 H 98 09/10/19 12:22 09/10/19 12:22 09/10/19 12:22 09/10/19 12:22 09/10/19 12:22
[2019-09-10] MEDS ORDERED: NORMAL SALINE 1000 ML 1,000 ML IV ONE ×2 (13:04→16:27)
[2019-09-10 13:06] LABS: APPEARANCE,URINE SLIGHTLY-CLOUDY; BILIRUBIN,URINE NEGATIVE (NEGATIVE); COLOR,URINE AMBER; GLUCOSE, URINE NEGATIVE (NEGATIVE); KETONES,URINE NEGATIVE (NEGATIVE); LEUKOCYTE ESTERASE,URINE NEGATIVE (NEGATIVE); NITRITE,URINE NEGATIVE (NEGATIVE); PROTEIN,URINE 30 mg/dL (NEGATIVE); URINE SPECIFIC GRAVITY 1.019; UROBILINOGEN,URINE NEGATIVE mg/dL (<2.0)
[2019-09-10] MEDS ORDERED: METOCLOPRAMIDE HCL INJ/PF 10 MG/2 ML SDV IV ONE (13:30)
--- NOTE | 2019-09-10 13:37 | RADIOLOGY REPORT (SQ) ---
EXAM DESCRIPTION: CHEST 2 VIEWS COMPLETED DATE/TIME: 09/10/2019 1:17 pm REASON FOR STUDY: cough COMPARISON: 03/11/2011 EXAM PARAMETERS: NUMBER OF VIEWS: two views TECHNIQUE: Digital Frontal and Lateral radiographic views of the chest acquired. RADIATION DOSE: NA LIMITATIONS: none FINDINGS: LUNGS AND PLEURA: No opacities, masses or pneumothorax. No pleural effusion. MEDIASTINUM AND HILAR STRUCTURES: No masses or contour abnormalities. HEART AND VASCULAR STRUCTURES: Heart normal size. No evidence for failure. BONES: The osseous structures are stable in appearance. HARDWARE: None in the chest. OTHER: No other significant finding. IMPRESSION: 1. NO ACUTE RADIOGRAPHIC FINDING IN THE CHEST. TECHNICAL DOCUMENTATION: JOB ID: [id number] 2010 [employer]- All Rights Reserved Reading location - IP/workstation name: [email or web address]
--- NOTE | 2019-09-10 13:43 | ER Document Report ---
ED GI/ - General Chief Complaint: Abdominal Pain Stated Complaint: ABDOMINAL PAIN Time Seen by Provider: 09/10/19 12:34 Primary Care Provider: OMARI PRATT MD [ACTIVE STAFF] - Follow up as needed FELIZ NOEL MD [ACTIVE STAFF] - Follow up as needed FABIOLA PETERS DO [Primary Care Provider] - Follow up as needed Notes: CHIEF COMPLAINT: Diarrhea for 1 month, abdominal pain for 3 weeks, vomiting for 3 days HPI: 34-year-old female presenting to the emergency department today for evaluation of multiple episodes of diarrhea over the last month. States she is having up to 10 episodes of diarrhea daily. Reports no known history of IBS or Crohn's, no family history of IBS or Crohn's that is known. Patient denies recent international travel, hospitalization, antibiotic use. She has not had fevers states she has had some chills. States she has had lower abdominal pain across the entire pelvis over the last 3 weeks that is fairly constant. States that she began having nausea vomiting 3 days ago with 2-3 episodes of vomiting daily. States she also developed a slight dry cough 3 days ago. Denies expo sure to anyone with known Covid 19, no shortness of breath. ROS: See HPI - all other systems were reviewed and are otherwise negative Constitutional: no fever Eyes: no drainage, no blurred vision ENT: no runny nose, no sore throat Cardiovascular: no chest pain Resp: no SOB, + cough GI: positive vomiting, positive diarrhea, positive abdominal pain : no dysuria Integumentary: no rash Allergy: no hives Musculoskeletal: no extremity pain or swelling Neurological: no numbness/tingling, no weakness MEDICATIONS: I agree with the patient medications as charted by the RN. ALLERGIES: I agree with the allergies as charted by the RN. PAST MEDICAL HISTORY/PAST SURGICAL HISTORY: Reviewed and agree as charted by RN. SOCIAL HISTORY: Reviewed and agree as charted by RN. FAMILY HISTORY: No significant familial comorbid conditions directly related to patient complaint EXAM: Reviewed vital signs as charted by RN. CONSTITUTIONAL: Alert and oriented and responds appropriately to questions. Well-appearing; well-nourished HEAD: Normocephalic; atraumatic EYES: PERRL; Conjunctivae clear, sclerae non-icteric ENT: normal nose; no rhinorrhea; slightly dry mucous membranes; pharynx without lesions noted, no uvula edema or deviation, no tonsillar hypertrophy, phonation normal NECK: Supple without meningismus; non-tender; no cervical lymphadenopathy, no masses CARD: Tachycardic; no murmurs, no clicks, no rubs, no gallops; symmetric distal pulses RESP: Normal chest excursion without splinting or tachypnea; breath sounds clear and equal bilaterally; no wheezes, no rhonchi, no rales, pulse oximetry 98% on room air not hypoxic ABD/GI: Normal bowel sounds; non-distended; soft, mild tenderness across the pelvis bilaterally on palpation. More focal right lateral abdominal pain and right lower quadrant pain on palpation, no rebound, no guarding; no palpable organomegaly or masses. BACK: The back appears normal and is non-tender to palpation, there is no CVA tenderness EXT: Normal ROM in all joints; non-tender to palpation; no cyanosis, no effusions, no edema SKIN: Normal color for age and race; warm; dry; good turgor; no acute lesions noted NEURO: Moves all extremities equally; Motor and sensory function intact PSYCH: The patient's mood and manner are appropriate. Grooming and personal hygiene are appropriate. MDM: 34-year-old female with multiple complaints. Initial work-up through the triage process. Diarrhea for 1 month, pelvic and lower abdominal pain for 3 weeks, vomiting and slight cough for 3 days. Patient is moderately tachycardic. Will have nursing recheck blood pressure after fluids. Does appear mildly dehydrated. States she cannot take Zofran will change to Reglan. Given her lower abdominal discomfort will evaluate with CT for possible colitis, div erticulitis, appendicitis or other intra-abdominal surgical or infectious pathologies. TRAVEL OUTSIDE OF THE [place] IN LAST 30 DAYS: No - Related Data Allergies/Adverse Reactions: No Known Allergies Allergy (Verified 09/10/19 12:49) Past Medical History - Social History Smoking Status: Current Every Day Smoker Frequency of alcohol use: None Drug Abuse: None Family History: Reviewed & Not Pertinent Patient has suicidal ideation: No Patient has homicidal ideation: No Renal/ Medical History: Denies: Hx Peritoneal Dialysis Past Surgical History: Reports: Hx Section - x4, Hx Dilation and Curettage - Immunizations Immunizations up to date: Yes Hx Diphtheria, Pertussis, Tetanus Vaccination: No Physical Exam - Vital signs Vitals: Temp Pulse Resp BP Pulse Ox 97.9 F 131 H 20 145/110 H 98 09/10/19 12:22 09/10/19 12:22 09/10/19 12:22 09/10/19 12:22 09/10/19 12:22 Course - Re-evaluation Re-evalutation: 09/10/19 15:42 Patient lab work does not show acute emergent abnormalities. Patient CT imaging does not show acute emergent abnormalities. More likely a viral etiology or other process that may be amenable to outpatient work-up by gastroenterology. 09/10/19 16:19 Patient shows a 3.5 cm left ovarian cyst on CT. Lab work does not show any acute abnormalities, will discharge home symptomatic treatment follow-up with gastroenterology - Vital Signs Vital signs: Temp Pulse Resp BP Pulse Ox 97.9 F 116 H 18 118/72 100 09/10/19 12:22 09/10/19 16:23 09/10/19 16:23 09/10/19 16:23 09/10/19 16:23 - Laboratory Result Diagrams: 09/10/19 14:16 09/10/19 14:16 Laboratory results interpreted by me: 09/10/19 09/10/19 09/10/19 12:47 14:16 14:16 RDW 20.7 H Sodium 135.3 L Total Bilirubin 1.4 H AST 56 H Alkaline Phosphatase 147 H Urine Protein 30 H Urine Blood SMALL H Discharge - Discharge Clinical Impression: Abdominal pain, lower, Ovarian cyst, left, Dehydration, Tachycardia Diarrhea Qualifiers: Diarrhea type: unspecified type Qualified Code(s): R19.7 - Diarrhea, unspecified Condition: Stable Disposition: HOME, SELF-CARE Additional Instructions: Take the medications as prescribed. Bentyl to help with abdominal pain and spasm. Imodium to help with the diarrhea. CT imaging did not show any diffuse abnormalities. It was noted to have a 3.5 cm left ovarian cyst this can be followed up with [facility] to ensure resolution. Otherwise follow-up with gastroenterology for further evaluation and management of your ongoing diarrhea and abdominal complaints. Make sure you are hydrating well at home. Prescriptions: Dicyclomine HCl [Bentyl 20 mg Tablet] 20 mg PO Q6H PRN #20 tablet PRN Reason: Naproxen [Naprosyn] 500 mg PO BID #20 tablet Referrals: FELIZ NOEL MD [ACTIVE STAFF] - Follow up as needed FABIOLA PETERS DO [Primary Care Provider] - Follow up as needed OMARI PRATT MD [ACTIVE STAFF] - Follow up as needed
[2019-09-10 13:50] LABS: A TYPE INFLUENZA AG NEGATIVE (NEGATIVE); B INFLUENZA AG NEGATIVE (NEGATIVE)
--- NOTE | 2019-09-10 14:12 | RADIOLOGY REPORT (SQ) ---
EXAM DESCRIPTION: CT ABD/PELVIS WITH IV ONLY COMPLETED DATE/TIME: 09/10/2019 1:58 pm REASON FOR STUDY: lower abd pain diarrhea COMPARISON: None. TECHNIQUE: CT scan of the abdomen and pelvis performed using helical scanning technique with dynamic intravenous contrast injection. No oral contrast. Images reviewed with lung, soft tissue, and bone windows. Reconstructed coronal and sagittal MPR images reviewed. Delayed images for evaluation of the urinary system also acquired. All images stored on PACS. All CT scanners at this facility use dose modulation, iterative reconstruction, and/or weight based d osing when appropriate to reduce radiation dose to as low as reasonably achievable (ALARA). [facility]: Dose Right [facility]: CareDose [facility]: Dose Right [facility]: Teradose 4D [facility]: Swype CONTRAST TYPE AND DOSE: contrast/concentration: Isovue 350.00 mg/ml; Total Contrast Delivered: 71.0 ml; Total Saline Delivered: 66.0 ml RENAL FUNCTION: None required. The patient is less than 50 years old. RADIATION DOSE: CT Rad equipment meets quality standard of care and radiation dose reduction techniq ues were employed. CTDIvol: 5.0 - 6.3 mGy. DLP: 604 mGy-cm.. LIMITATIONS: None. FINDINGS: LOWER CHEST: No significant findings. No nodules or infiltrates. LIVER: Normal size. Fatty change. No masses. No dilated ducts. SPLEEN: Normal size. No focal lesions. PANCREAS: No masses. No significant calcifications. No adjacent inflammation or peripancreatic fluid collections. Pancreatic duct not dilated. GALLBLADDER: No identified stones by CT criteria. No inflammatory changes to suggest cholecystitis. ADRENAL GLANDS: No significant masses or asymmetry. RIGHT KIDNEY AND URETER: No solid masses. No significant calcifications. No hydronephrosis or hyd roureter. LEFT KIDNEY AND URETER: No solid masses. No significant calcifications. No hydronephrosis or hydr oureter. AORTA AND VESSELS: No aneurysm. No dissection. Renal arteries, SMA, celiac without stenosis. RETROPERITONEUM: No retroperitoneal adenopathy, hemorrhage or masses. BOWEL AND PERITONEAL CAVITY: No masses or inflammatory changes. No free fluid or peritoneal masses. APPENDIX: Normal. PELVIS: 3.5 cm cyst left ovary. No free fluid. Normal bladder. ABDOMINAL WALL: No masses. No hernias. BONES: No significant or acute findings. OTHER: No other significant finding. IMPRESSION: 3.5 cm cyst left ovary. Normal appendix. TECHNICAL DOCUMENTATION: JOB ID: [id number] Quality ID # [id number]: Final reports with documentation of one or more dose reduction techniques (e.g., Au tomated exposure control, adjustment of the mA and/or kV according to patient size, use of iterative reconstruction technique) 2010 [employer]- All Rights Reserved Reading location - IP/workstation name: [facility]
[2019-09-10 14:41] LABS: ABSOLUTE LYMPHOCYTES (AUTO) 1.1 10^3/uL (0.5-4.7); ABSOLUTE MONOCYTES (AUTO) 0.4 10^3/uL (0.1-1.4); ABSOLUTE NEUT (AUTO) 4.8 10^3/uL (1.7-8.2); BASOPHILS % (AUTO) 0.6 % (0-2); EOSINOPHILS % (AUTO) 0.2 % (0-6); HEMOGLOBIN 13.3 g/dL (12.0-15.5); MEAN CORPUSCULAR HEMOGLOBIN 32.9 pg (27.0-33.4); MONOCYTES % (AUTO) 5.7 % (3-13); PLATELET COUNT 187 10^3/uL (150-450); RED BLOOD COUNT 4.04 10^6/uL (3.72-5.28); RED CELL DISTRIBUTION WIDTH 20.7 % (11.5-14.0); SEGMENTED NEUTROPHILS % (AUTO) 76.5 % (42-78); TOTAL CELLS COUNTED % (AUTO) 100 %; WHITE BLOOD COUNT 6.3 10^3/uL (4.0-10.5)
[2019-09-10 14:49] LABS: MEAN CORPUSCULAR VOLUME 94 fl (80-97)
[2019-09-10 15:01] LABS: ALBUMIN 3.5 g/dL (3.5-5.0); ALKALINE PHOSPHATASE 147 U/L (38-126); ANION GAP 8 (5-19); ASPARTATE AMINO TRANSFERASE 56 U/L (14-36); BILIRUBIN,DIRECT 0.3 mg/dL (0.0-0.4); BILIRUBIN,TOTAL 1.4 mg/dL (0.2-1.3); BLOOD UREA NITROGEN 7 mg/dL (7-20); CARBON DIOXIDE 27 mmol/L (22-30); CHLORIDE 100 mmol/L (98-107); GLUCOSE 92 mg/dL (75-110); POTASSIUM 4.1 mmol/L (3.6-5.0)
--- NOTE | 2019-09-10 15:53 | EKG REPORT ---
SEVERITY:- ABNORMAL ECG - SINUS TACHYCARDIA PROBABLE LEFT VENTRICULAR HYPERTROPHY BORDERLINE PROLONGED QT INTERVAL : Confirmed by: Dipika Jennings MD 10-Sep-2019 15:52:47
[2019-09-10 16:24] VITALS: BP 118/72
[2019-09-10 16:52] LABS: URINE AMPHETAMINES SCREEN NEGATIVE; URINE BARBITURATES SCREEN NEGATIVE; URINE MARIJUANA (THC) SCREEN NEGATIVE; URINE METHADONE SCREEN NEGATIVE; URINE PHENCYCLIDINE SCREEN NEGATIVE
[2019-09-10 16:53] LABS: URINE BENZODIAZEPINES SCREEN UNCONFIRMED POSITIVE; URINE COCAINE SCREEN UNCONFIRMED POSITIVE
== END 2019-09-10 17:13 | disposition home or self-care (01) ==
LOC: ER 12:15
DX: N83.202 Unspecified ovarian cyst, left side (principal); R19.7 Diarrhea, unspecified; R11.2 Nausea with vomiting, unspecified; E86.0 Dehydration; R00.0 Tachycardia, unspecified; R68.83 Chills (without fever); R05 Cough; R10.31 Right lower quadrant pain; R10.2 Pelvic and perineal pain; F17.200 Nicotine dependence, unspecified, uncomplicated
CPT/HCPCS: 93005; 99284; 96361; 96374; 36415; 83690; 84443; 85025; 81025; 80053; 81001; 84484; 80307; 87804; 71046; 74177; 93010; J2765; J7030

== ENCOUNTER 2020-01-04 19:01 | Emergency (ER) | payer SELFPAY ==
[2020-01-04] MEDS ORDERED: LIDOCAINE 2% JELLY 30 ML TUBE TOP ONE (20:03)
[2020-01-04] MEDS ORDERED: PENICILLIN V POTASSIUM 500 MG TABLET PO ONE (20:03)
[2020-01-04] MEDS ORDERED: HYDROCODONE/ACETAMINOPHEN 5-325 MG TABLET PO ONE (20:04)
--- NOTE | 2020-01-04 20:08 | ER Document Report ---
HPI - HPI Time Seen by Provider: 01/04/20 20:01 Pain Level: 5 Notes: CHIEF COMPLAINT: Facial swelling for 4 days with dental pain HPI: 34-year-old female presenting by ambulance for evaluation of dental pain over the last 4 days progressively worsening with some lower jaw swelling. No definitive fever. ROS: See HPI - all other systems were reviewed and are otherwise negative Constitutional: no fever Eyes: no drainage, no blurred vision ENT: no runny nose, no sore throat Integumentary: no rash Allergy: no hives MEDICATIONS: I agree with the patient medications as charted by the RN. ALLERGIES: I agree with the allergies as charted by the RN. PAST MEDICAL HISTORY/PAST SURGICAL HISTORY: Reviewed and agree as charted by RN. SOCIAL HISTORY: Reviewed and agree as charted by RN. FAMILY HISTORY: No significant familial comorbid conditions directly related to patient complaint EXAM: Reviewed vital signs as charted by RN. CONSTITUTIONAL: Alert and oriented and responds appropriately to questions. Well-appearing; well-nourished HEAD: Normocephalic; atraumatic EYES: PERRL; Conjunctivae clear, sclerae non-icteric ENT: normal nose; no rhinorrhea; moist mucous membranes; pharynx without lesions noted, no uvula edema or deviation, no tonsillar hypertrophy, phonation normal. There is a small abscess laterally adjacent to the right lower premolars. There is slight mandibular swelling but no submandibular swelling on the right. No trismus. No sublingual swelling NECK: Supple without meningismus; non-tender; no cervical lymphadenopathy, no masses CARD: Capillary refill less than 3 seconds; symmetric distal pulses RESP: Normal chest excursion without splinting or tachypnea ABD/GI: non-distended BACK: The back appears normal EXT: Normal ROM in all joints; no cyanosis, no effusions, no edema SKIN: Normal color for age and race; warm; dry; good turgor NEURO: Moves all extremities equally; Motor and sensory function intact PSYCH: The patient's mood and manner are appropriate. Grooming and personal hygiene are appropriate. MDM: 34-year-old female with a dental abscess right lower jaw. We will plan to incise the area to open it for drainage. Start patient on antibiotics. - EENT EENT: REPORTS: Sore Throat - REPRODUCTIVE Reproductive: DENIES: : Past Medical History - Social History Smoking Status: Former Smoker Chew tobacco use (# tins/day): No Frequency of alcohol use: None Drug Abuse: None Family History: Reviewed & Not Pertinent Renal/ Medical History: Denies: Hx Peritoneal Dialysis Past Surgical History: Reports: Hx Section - x4, Hx Dilation and Curettage - Immunizations Immunizations up to date: Yes Hx Diphtheria, Pertussis, Tetanus Vaccination: No Vertical Provider Document - INFECTION CONTROL TRAVEL OUTSIDE OF THE [place] IN LAST 30 DAYS: No Course - Vital Signs Vital signs: Temp Pulse Resp BP Pulse Ox 98.7 F 86 16 153/86 H 99 01/04/20 19:56 01/04/20 19:28 01/04/20 19:28 01/04/20 19:28 01/04/20 19:28 Procedures - Incision and Drainage Right Lower Face Time completed: 20:31 - right lower jaw Type: Simple Anesthetic type: 2% Lidocaine mL's of anesthetic: 1 - topical Blade size: 11 Incision Method: Incision made by scalpel Amount/type of drainage: 2 mL purulent Discharge - Discharge Clinical Impression: Dental abscess Condition: Stable Disposition: HOME, SELF-CARE Additional Instructions: 1. Take the medications as prescribed, if you were written antibiotics make sure that you finish them. 2. You need to follow up with a dentist for definitive evaluation and care of your dental problems 3. return to the ED for any facial swelling, fever > 101, difficulty swallowing or opening the mouth. 4. You may attempt to follow up with the [facility] for further care as well as through the dental list provided. 5. you may want to consider a dental discount plan such as [email or web address] to help with costs of dental care as you do not have dental insurance Prescriptions: Penicillin V Potassium [Penicillin Vk 500 mg Tablet] 500 mg PO BID #20 tablet Penicillin V Potassium [Penicillin Vk 500 mg Tablet] 500 mg PO BID #20 tablet Diclofenac Sodium [Voltaren 50 Mg Tablet.] 50 mg PO BID #20 tablet. Diclofenac Sodium [Voltaren 50 Mg Tablet.] 50 mg PO BID #20 tablet. Referrals: FABIOLA PETERS DO [Primary Care Provider] - Follow up as needed
[2020-01-04] MEDS ORDERED: LIDOCAINE 2% JELLY 5 ML TUBE ONE (20:15)
[2020-01-05 01:27] VITALS: BP 145/84
== END 2020-01-04 20:40 | disposition home or self-care (01) ==
LOC: ER 19:01
DX: K04.7 Periapical abscess without sinus (principal); R22.0 Localized swelling, mass and lump, head; K08.89 Other specified disorders of teeth and supporting structures; J02.9 Acute pharyngitis, unspecified; Z87.891 Personal history of nicotine dependence
CPT/HCPCS: 99282